=== PATIENT | male | born 1950 | race Caucasian/White ===

== ENCOUNTER 2018-10-22 15:28 | Inpatient (IN) ==
[2018-10-22] MEDS ORDERED: Adenosine Inj 6 MG/2 ML Syringe IV.PUSH ONE (15:38)
[2018-10-22] MEDS ORDERED: Sodium Chlor 0.9% Inj 500 ML IV.SIG ONE (15:40)
[2018-10-22 15:56] LABS: Baso % (Auto) 0.2 % (0.0-2.0); Eos # (Auto) 0.1 th/mm3 (0.0-0.4); Eos % (Auto) 1.1 % (0.0-4.0); Hematocrit 49.2 % (39.0-51.0); Hemoglobin 16.4 gm/dL (13.0-17.0); Lymph # (Auto) 2.1 th/mm3 (1.0-4.8); Lymph % (Auto) 16.5 % (9.0-44.0); Mean Corpuscular HGB Conc 33.3 % (32.0-36.0); Mean Corpuscular Hemoglobin 29.7 pg (27.0-34.0); Mean Corpuscular Volume 89.2 fL (80.0-100.0); Mean Platelet Volume 8.3 fL (7.0-11.0); Mono # (Auto) 1.1 th/mm3 (0.0-0.9); Mono % (Auto) 8.5 % (0.0-8.0); Neut # (Auto) 9.3 th/mm3 (1.8-7.7); Neut % (Auto) 73.7 % (16.0-70.0); Platelet Count 250 th/mm3 (150-450); Red Blood Count 5.51 mil/mm3 (4.50-5.90); Red Cell Distribution Width 13.3 % (11.6-17.2); White Blood Count 12.6 th/mm3 (4.0-11.0)
--- NOTE | 2018-10-22 15:56 | XR ---
EXAM DATE: 10/22/2018 3:53 PM EST AGE/SEX: 68 years / Male INDICATIONS: Chest pain. CLINICAL DATA: This is the patient's initial encounter. Patient reports that signs and symptoms have been present for 1 day and indicates a pain score of 7/10. MEDICAL/SURGICAL HISTORY: Carcinoma, prostatic. Chronic obstructive pulmonary disease. Myocard ial infarction. CABG. COMPARISON: No prior exams available for comparison. FINDINGS: The lungs are clear without infiltrate, nodule, or mass. There is no appreciable pleural effusion for technique. Heart and mediastinum are unremarkable. There is evidence for prior median sternotomy. CONCLUSION: No acute cardiopulmonary disease. Electronically signed by: Lizet Fernandez MD Board Certified Radiologist 10/22/2018 3:55 PM EST
[2018-10-22 16:04] LABS: Chloride 104 meq/L (98-107); Potassium 3.6 meq/L (3.5-5.1); Sodium 138 meq/L (136-145)
[2018-10-22 16:08] LABS: Activated Partial Thrombo Time 31.6 sec (23.4-31.7); Albumin 3.7 g/dL (3.4-5.0); Anion Gap 8 meq/L (5-15); Blood Urea Nitrogen 19 mg/dL (7-18); Calcium 8.6 mg/dL (8.5-10.1); Carbon Dioxide 26.1 meq/L (21.0-32.0); Glucose,Random 160 mg/dL (74-106); Prothrombin Time 10.4 sec (9.8-11.6)
--- NOTE | 2018-10-22 16:08 | ED ---
HPI General Chief Complaint: Chest Pain Stated Complaint: chest pain/poss heart attack Time Seen by Provider: 10/22/18 15:30 Source: patient Mode of arrival: ambulatory Limitations: no limitations History of Present Illness HPI narrative: Patient is a 68-year-old male, past medical history significant for peripheral vascular disease status post stent placement in the iliac, coronary artery disease status post four-vessel CABG done approximately 2-3 years ago, COPD, who presents with complaint of chest pain that began yesterday. He states that yesterday he started to have substernal burning with some palpitations. He attributed it to indigestion. This morning it worsened it was associated with some dyspnea. He does have COPD and uses an inhaler without relief. He then took a nitroglycerin which also did not provide relief and he came here. He denies leg swelling. Me denies abdominal pain, nausea, vomiting, diarrhea. He does have slight lightheadedness. complaint: Reports chest pain STEMI Alert: No Onset (ago): day(s) Duration: constant Onset: during rest Pain location: Reports substernal Severity: severe Quality: Reports aching and heaviness Pain radiation: Reports none Relieving factors: nothing Exacerbating factors: nothing Associated symptoms: Reports dyspnea Treatments prior to arrival chest pain: Reports nitroglycerin Related Data Allergies Allergy/AdvReac Type Severity Reaction Status Date / Time No Known Allergies Allergy Verified 10/22/18 15:42 Review of Systems ROS: all other systems reviewed are negative [facility] Medical History Medical History Coronary artery graft present (Acute) New onset atrial fibrillation (Acute) Prostate cancer (Acute) Surgical History Surgical History History of coronary artery stent placement (Acute) Hx of cholecystectomy (Acute) Social History Social History Substance History: No History of Abuse Second Hand Smoke Exposure: No Smoking Status: Former smoker Tobacco Type: Cigarettes How Often Do You Have a Drink Containing Alcohol: 2 to 3 times a week Recent Travel in [facility] within the Last 8 Weeks: No Recent Out of Country Travel within the Last 8 Weeks: No Immunization History Tetanus Immunization: >5 Years Exam Narrative Exam Narrative: GENERAL: Well-appearing male in distress SKIN: Focused skin assessment warm. Some diaphoresis HEAD: Atraumatic. Normocephalic. EYES: Pupils equal and round. No scleral icterus. No injection or drainage. ENT: No nasal bleeding or discharge. Mucous membranes pink and moist. NECK: Trachea midline. No JVD. CARDIOVASCULAR: Tachycardic and irregular. No murmur appreciated. Intact and equal peripheral pulses. RESPIRATORY: No accessory muscle use. Clear to auscultation. Breath sounds equal bilaterally. GASTROINTESTINAL: Abdomen soft, non-tender, nondistended. Hepatic and splenic margins not palpable. MUSCULOSKELETAL: No obvious deformities. No clubbing. No cyanosis. No edema. NEUROLOGICAL: Awake and alert. No obvious cranial nerve deficits. Motor grossly within normal limits. Normal speech. PSYCHIATRIC: Appropriate mood and affect; insight and judgment normal. Course Initial Documented Vital Signs Temperature 98.2 F 10/22/18 15:30 Pulse Rate 167 H 10/22/18 15:30 Respiratory Rate 16 10/22/18 15:30 Blood Pressure 101/65 10/22/18 15:30 Pulse Oximetry 98 10/22/18 15:30 Last Documented Vital Signs Temperature 98.2 F 10/22/18 15:30 Pulse Rate 101 H 10/22/18 17:08 Respiratory Rate 16 10/22/18 17:08 Blood Pressure 102/71 10/22/18 17:08 Pulse Oximetry 97 10/22/18 17:08 Medical Decision Making MDM Narrative Medical decision making narrative: Patient is a 68-year-old male history of peripheral vascular disease and coronary artery disease who presents with complaint of chest pain that began yesterday and worsened approximately 2 hours prior to arrival. On arrival his heart rate continuously bounced around from 115-160-180 and then back down to 130 and back up to 180 continuously. It did not stay at the same rate for more than 5-10 seconds. Blood pressure was in the 100s. EKG did show some irregularity which may be secondary to SVT. He was given 15 mg of diltiazem as this will treat both SVT and atrial fibrillation with immediate response and heart rate decreased from 180 down to the 110s. Patient then began to feel better as well. Repeat EKG afterwards shows what appears to be some sinus tachycardia (? P waves), with several complexes without P waves. Chest x-ray does not show acute consolidation. Labs were relatively unremarkable. Patient then informed me that he also has prostate cancer that he is actively being treated for. CTA was ordered and did not show pulmonary embolism. I spoke with Dr. Kidd, manager branch on-call, who was in the building and came to see the patient. He placed several orders for the patient for essentially an ACS rule out in addition to oral, IV and IV drip of diltiazem. I then spoke with Dr. Reinoso, hospitalist eye surgeon, for admission. Medical Screen Exam Complete: Yes Emergency Medical Condition: Yes Differential Diagnosis Differential Diagnosis: Differential diagnosis includes but is not limited to acute coronary syndrome, SVT, atrial fibrillation. Medical Records Medical records reviewed: Yes I reviewed the patient's medical records. Lab Data Lab results reviewed: Yes I reviewed the patient's lab results. Result diagrams: 10/22/18 15:40 10/22/18 15:40 Lab Results 10/22/18 10/22/18 10/22/18 Range/Units 15:34 15:40 15:40 CBC w Diff Auto diff final WBC 12.6 H (4.0-11.0) th/mm3 RBC 5.51 (4.50-5.90) mil/mm3 Hgb 16.4 (13.0-17.0) gm/dL Hct 49.2 (39.0-51.0) % MCV 89.2 (80.0-100.0) fL MCH 29.7 (27.0-34.0) pg MCHC 33.3 (32.0-36.0) % RDW 13.3 (11.6-17.2) % Plt Count 250 (150-450) th/mm3 MPV 8.3 (7.0-11.0) fL Neut % (Auto) 73.7 H (16.0-70.0) % Lymph % (Auto) 16.5 (9.0-44.0) % Stoddard % (Auto) 8.5 H (0.0-8.0) % Eos % (Auto) 1.1 (0.0-4.0) % Baso % (Auto) 0.2 (0.0-2.0) % Neut # (Auto) 9.3 H (1.8-7.7) th/mm3 Lymph # (Auto) 2.1 (1.0-4.8) th/mm3 Stoddard # (Auto) 1.1 H (0.0-0.9) th/mm3 Eos # (Auto) 0.1 (0.0-0.4) th/mm3 Baso # (Auto) 0.0 (0.0-0.2) th/mm3 WBC Differential . Differential Comment . PT 10.4 (9.8-11.6) sec INR 1.0 Ratio APTT 31.6 (23.4-31.7) sec Sodium (136-145) meq/L Potassium (3.5-5.1) meq/L Chloride (98-107) meq/L Carbon Dioxide (21.0-32.0) meq/L Anion Gap (5-15) meq/L BUN (7-18) mg/dL Creatinine (0.60-1.30) mg/dL Estimated GFR (>89) mL/min POC Glucose 152 H (68-110) mg/dl Random Glucose (74-106) mg/dL Calcium (8.5-10.1) mg/dL Total Bilirubin (0.2-1.0) mg/dL AST (15-37) U/L ALT (12-78) U/L Alkaline Phosphatase (45-117) U/L Troponin I (0.02-0.05) ng/mL B-Natriuretic Peptide (0-100) pg/mL Total Protein (6.4-8.2) g/dL Albumin (3.4-5.0) g/dL 10/22/18 10/22/18 Range/Units 15:40 15:40 CBC w Diff WBC (4.0-11.0) th/mm3 RBC (4.50-5.90) mil/mm3 Hgb (13.0-17.0) gm/dL Hct (39.0-51.0) % MCV (80.0-100.0) fL MCH (27.0-34.0) pg MCHC (32.0-36.0) % RDW (11.6-17.2) % Plt Count (150-450) th/mm3 MPV (7.0-11.0) fL Neut % (Auto) (16.0-70.0) % Lymph % (Auto) (9.0-44.0) % Stoddard % (Auto) (0.0-8.0) % Eos % (Auto) (0.0-4.0) % Baso % (Auto) (0.0-2.0) % Neut # (Auto) (1.8-7.7) th/mm3 Lymph # (Auto) (1.0-4.8) th/mm3 Stoddard # (Auto) (0.0-0.9) th/mm3 Eos # (Auto) (0.0-0.4) th/mm3 Baso # (Auto) (0.0-0.2) th/mm3 WBC Differential Differential Comment PT (9.8-11.6) sec INR Ratio APTT (23.4-31.7) sec Sodium 138 (136-145) meq/L Potassium 3.6 (3.5-5.1) meq/L Chloride 104 (98-107) meq/L Carbon Dioxide 26.1 (21.0-32.0) meq/L Anion Gap 8 (5-15) meq/L BUN 19 H (7-18) mg/dL Creatinine 1.20 (0.60-1.30) mg/dL Estimated GFR 60 L (>89) mL/min POC Glucose (68-110) mg/dl Random Glucose 160 H (74-106) mg/dL Calcium 8.6 (8.5-10.1) mg/dL Total Bilirubin 1.7 H (0.2-1.0) mg/dL AST 14 L (15-37) U/L ALT 20 (12-78) U/L Alkaline Phosphatase 93 (45-117) U/L Troponin I Less than 0.02 L (0.02-0.05) ng/mL B-Natriuretic Peptide 85 (0-100) pg/mL Total Protein 7.6 (6.4-8.2) g/dL Albumin 3.7 (3.4-5.0) g/dL Imaging Data Attestation: I personally reviewed and interpreted this imaging study as follows : My impression: No acute cardiopulmonary process. Radiologist's impression: Chest X-Ray 10/22/18 15:40 CONCLUSION: No acute cardiopulmonary disease. Chest CTA 10/22/18 16:27 CONCLUSION: Stable right lung base nodule and chronic scar. ECG Data EKG Prior to Arrival: No Attestation: I personally reviewed and interpreted this ECG as follows: ( Tachycardia at a rate of 180 bpm. No visible P waves were seen. SVT versus atrial fibrillation.) Discharge Plan Discharge Disposition Patient Disposition: ED Admit(ED Internal Use Only) Discharge Condition Condition: Stable Discharge Order Discharge Orders: ED Use Only Admit Order (Routine); Ordered 10/22/18 Ordered By: Radha White Discharge Details Diagnosis: New onset atrial fibrillation, Chest pain, rule out acute myocardial infarction , History of four vessel coronary artery bypass graft Physicians Team ED Provider: Radha White Primary Care Provider: Jessie Wharton Attending Provider: Martha Reinoso Other Providers: Louis Cervantes Discharge Interventions Interventions: Vital Signs Last Done: 10/22/18 17:08 Status ED Status: Admitted Patient
[2018-10-22 16:11] LABS: Alanine Aminotransferase 20 U/L (12-78); Aspartate Aminotransferase 14 U/L (15-37); Glomerular Filtration Rate 60 mL/min (>89)
[2018-10-22 16:13] LABS: Total Protein 7.6 g/dL (6.4-8.2)
[2018-10-22 16:14] LABS: Alkaline Phosphatase 93 U/L (45-117)
[2018-10-22] MEDS ORDERED: Regadenoson Inj 0.4 MG/5 ML Syringe IV.PUSH ONE (16:40)
[2018-10-22] MEDS ORDERED: dilTIAZem Inj 125 MG in Sodium Chlor 0.9% Inj 100 ML IV.CONT PRN (17:00)
[2018-10-22] MEDS ORDERED: Sod Chloride 0.9% Inj 1,000 ML IV.CONT SCH (17:00)
--- NOTE | 2018-10-22 17:06 | CT ---
EXAM DATE: 10/22/2018 4:54 PM EST AGE/SEX: 68 years / Male INDICATIONS: Short of breath and Chest discomfort CLINICAL DATA: This is the patient's initial encounter. Patient reports that signs and symptoms have been present for 1 day and indicates a pain score of 0/10. MEDICAL/SURGICAL HISTORY: Carcinoma, prostatic. Atrial Fibrillation Cholecystectomy. Coronary Maryellen ry Graft RADIATION DOSE: 13.01 CTDI (mGy) COMPARISON: POI, CT CHEST W/O CONTRAST, 06/27/2018. [place] [facility] [place] . TECHNIQUE: Volumetric scanning was performed using a multi-row detector CT scanner during bolus infu [place] of 73ML ml Omnipaque 350 (iohexol) nonionic water-soluble contrast as a single exam dose. The d joya was post processed with a variety of visualization algorithms including full volume maximum inten sity projection and sliding thin slab reformation. Using automated exposure control and adjustment o f the mA and/or kV according to patient size, radiation dose was kept as low as reasonably achievable to obtain optimal diagnostic quality images. DICOM format image data is available electronically fo r review and comparison. FINDINGS: Slight right lung base scar is present with tiny nodular density is stable not significantly changes since 2014. COPD changes are seen. Coronary artery calcifications are seen typically seen with kinney ry artery disease and clinical correlation and evaluation is suggested. There is no evidence of PE fo r technique. . There is no pleural effusion. No appreciable pathological adenopathy is seen withi n the mediastinum. CONCLUSION: Stable right lung base nodule and chronic scar. Electronically signed by: Lizet Fernandez MD Board Certified Radiologist 10/22/2018 5:04 PM EST
[2018-10-22] MEDS ORDERED: Acetaminophen 325 MG Tablet PO ONE (17:18)
--- NOTE | 2018-10-22 17:19 | MB ---
cc: Louis Cervantes MD DATE: 10/22/2018 REASON FOR CONSULTATION: Chest pain with new onset atrial fibrillation. 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 The patient had been doing well until the last several days when he began having what he describes as heartburn in the central chest and generally not feeling well. He wears an [employer] watch which told him he was tachycardic, so he presented to the emergency department where he was found to be in a rapid atrial fibrillation/flutter. He has been given Cardizem with some slowing of his heart rate. He is feeling better at the moment with no current chest pain. No shortness of breath, lightheadedness, dizziness. PAST MEDICAL HISTORY: 1. Coronary artery disease, status post 4-vessel CABG 2-3 years ago. 2. COPD. 3. PAD. CURRENT MEDICATIONS: (Most of these just started) 1. Oral Cardizem 30 mg p.o. daily. 2. Cardizem drip. 3. Eliquis 5 mg b.i.d. ALLERGIES: NO KNOWN DRUG ALLERGIES. PHYSICAL EXAMINATION: VITAL SIGNS: Afebrile, heart rate 96, blood pressure 107/67, saturating 90 on room air. GENERAL: A very pleasant gentleman in no distress. NECK: No JVD. LUNGS: Clear to auscultation bilaterally. CARDIOVASCULAR: Irregularly irregular rhythm with a mildly rapid rate. No significant murmurs appreciated. ABDOMEN: Benign. EXTREMITIES: No edema. LABORATORY DATA: White count 12.6, hemoglobin 16.4, hematocrit 49.2. INR is 1.0. Sodium 138, potassium 3.6, chloride 104, bicarbonate 26.1, BUN 18, creatinine 1.2, glucose 152. Troponin is negative x1. EKG shows atrial fibrillation at a rate of [address] changes. IMPRESSION: 1. Atrial fibrillation. The patient has new onset atrial fibrillation. I have started him on a Cardizem drip with saline boluses to improve his blood pressure given he has no history of congestive heart failure and his labs do look like he is somewhat dry. I have also started oral Cardizem and his drip can be weaned down as tolerated. For anticoagulation, I have initiated Eliquis 5 mg b.i.d. He will undergo an echocardiogram to ensure his left ventricular function and valvular status is acceptable. 2. Chest pain. The patient has vague chest pain, which may be unrelated, but given his known coronary disease, I will have him undergo a nuclear stress test tomorrow presuming no major change to his cardiac enzymes. Further recommendations based on the above. Thank you again for the opportunity to participate in this patient's care. MD NIMESH TorreH/shila , 04:47 PM , 04:52 PM
[2018-10-22] MEDS: dilTIAZem 30 MG Tablet PO SCH ×2 (18:05→22:12)
[2018-10-23] MEDS: dilTIAZem 30 MG Tablet PO SCH ×2 (10:01→15:20)
[2018-10-23 10:35] VITALS: RESP 20
--- NOTE | 2018-10-23 10:35 | ECHRPT ---
Indication: ATRIAL FIB/FLUTTER CONCLUSIONS Normal left ventricular size. Wall thickness is normal. The left ventricular systolic function is mildly reduced with an estimated ejection fraction in the range of 45- 50%. There is abnormal (paradoxical) septal motion consistent with postoperative state. There is trace tricuspid valve regurgitation. The estimated pulmonary arterial pressure is 33.6 mmHg. A prominent epicardial fat pad is present. BP: / HR: Rhythm: Sinus MEASUREMENTS (Male / Female) Normal Values Technical Quality:Technically difficult study 2D ECHO LV Diastolic Diameter PLAX 4.6 cm 4.2 - 5.9 / 3.9 - 5.3 cm LV Systolic Diameter PLAX 3.9 cm IVS Diastolic Thickness 0.8 cm 0.6 - 1.0 / 0.6 - 0.9 cm LVPW Diastolic Thickness 0.8 cm 0.6 - 1.0 / 0.6 - 0.9 cm LV Relative Wall Thickness 0.3 RV Internal Dim ED PLAX 2.8 cm LVOT Diameter 1.9 cm Aortic Root Diameter 3.5 cm LA Systolic Diameter LX 2.7 cm 3.0 - 4.0 / 2.7 - 3.8 cm M-MODE AV Cusp Separation MM 1.9 cm DOPPLER AV Peak Velocity 113.0 cm/s AV Peak Gradient 5.1 mmHg AV Mean Gradient 3.0 mmHg AV Velocity Time Integral 22.9 cm LVOT Peak Velocity 79.7 cm/s LVOT Peak Gradient 2.5 mmHg LVOT Velocity Time Integral 14.7 cm AV Area Cont Eq vti 1.8 cm AV Area Cont Eq pk 2.0 cm Mitral E Point Velocity 94.3 cm/s Mitral A Point Velocity 69.6 cm/s Mitral E to A Ratio 1.4 LV E' Lateral Velocity 9.9 cm/s Mitral E to LV E' Lateral Ratio 9.5 LV E' Septal Velocity 8.2 cm/s Mitral E to LV E' Septal Ratio 11.5 TR Peak Velocity 243.0 cm/s TR Peak Gradient 23.6 mmHg Right Atrial Pressure 10.0 mmHg Pulmonary Artery Systolic Pressu 33.6 mmHg Right Ventricular Systolic Press 33.6 mmHg PV Peak Velocity 48.1 cm/s PV Peak Gradient 0.9 mmHg FINDINGS LEFT VENTRICLE Normal left ventricular size. Wall thickness is normal. The left ventricular systolic function is mildly reduced with an estimated ejection fraction in the range of 45- 50%. There is abnormal (paradoxical) septal motion consistent with postoperative state. RIGHT VENTRICLE Normal right ventricular size and systolic function. LEFT ATRIUM The left atrial size is normal. RIGHT ATRIUM The right atrial size is normal. ATRIAL SEPTUM No atrial level shunt is demonstrated by color flow Doppler interrogation. AORTA The aortic root and proximal ascending aorta are not well visualized. MITRAL VALVE Structurally normal mitral valve. No mitral valve stenosis or regurgitation. AORTIC VALVE Trileaflet aortic valve. No aortic valve stenosis or regurgitation. TRICUSPID VALVE There is trace tricuspid valve regurgitation. The estimated pulmonary arterial pressure is 33.6 mmHg. PULMONARY VALVE No pulmonary valve regurgitation or stenosis. VESSELS The inferior vena cava was not well visualized. PERICARDIUM No pericardial effusion. A prominent epicardial fat pad is present. Louis Cervantes MD (Electronically Signed) Final Date:23 October 2018 10:33
[2018-10-23] MEDS ORDERED: Regadenoson Inj 0.4 MG/5 ML Syringe IV.PUSH ONE (10:47)
--- NOTE | 2018-10-23 11:43 | P.HPIM ---
History of Present Illness Primary Care Physician: Jessie Wharton MD Chief Complaint: Chest pain and arrhythmia History of Present Illness: 68-year-old male with known history of hypertension, hyper lipidemia, tobacco use, coronary disease status post bypass surgery, recent diagnosed prostate cancer undergoing radiation treatment who presented to hospital because of chest pain and arrhythmia/palpitations. Patient states that he was in normal state of health until yesterday started developing pain in the left side of his chest pain 2 nights ago and he thought it was related to indigestion. Yesterday morning when he still continued to have the discomfort he did take nitroglycerin with some minimal improvement. He states that the pain was worse whenever he took a deep breath which got up to 8/10 on a pain scale. He does have an apple watch in which he checked and noticed that his heart rate was 180 and because of that he came to the emergency department for evaluation. He denied any lightheadedness, dizziness, nausea, vomiting, diaphoresis. Patient had workup done in emergency department found to have atrial fibrillation and was started on Cardizem with conversion to sinus rhythm. Lime Trimmer was in the hospital and evaluated patient emergency department and made recommendations for treatment. Currently patient is lying in bed and resting comfortably. Awaiting stress test to be performed. Patient is currently asymptomatic. Diagnosis (1) New onset atrial fibrillation: (2) Chest pain, rule out acute myocardial infarction: Inpatient Certification Inpatient Certification: I certify that the inpatient services were ordered in accordance with Medicare regulations governing the order. This includes certification that hospital inpatient services are reasonable and necessary and in the case of services not specified as inpatient-only under 42 CFR 419.22(n), that they are appropriately provided as inpatient services in accordance to with the 2-midnight benchmark under 43 CFR 412.3(e) Estimated Total Length of Stay (Days): 2 Plans for Post Hospital Care: Home Review of Systems Review of Systems: all other systems reviewed are negative Cardiovascular: Reports chest pain and Reports rapid heart rate [facility] Medical History Medical History Coronary artery disease (Acute) Hyperlipidemia (Acute) Hypertension (Acute) New onset atrial fibrillation (Acute) Prostate cancer (Acute) Surgical History Surgical History Coronary artery graft present (Acute) History of coronary artery stent placement (Acute) Hx of cholecystectomy (Acute) Status post insertion of iliac artery stent (Acute) Family History Family History Mother Family history of heart disease Family history of cancer Social History Social History Substance History: No History of Abuse Second Hand Smoke Exposure: No Smoking Status: Former smoker Tobacco Type: Cigarettes How Often Do You Have a Drink Containing Alcohol: 2 to 3 times a week Recent Travel in [facility] within the Last 8 Weeks: No Recent Out of Country Travel within the Last 8 Weeks: No Immunization History Tetanus Immunization: Unsure Hx Influenza Vaccine This Season: Yes Medications and Allergies Allergies Allergy/AdvReac Type Severity Reaction Status Date / Time No Known Allergies Allergy Verified 10/22/18 15:42 Active Medications: Active Medications Apixaban (Eliquis) 5 mg PO BID [facility] Last Admin: 10/23/18 10:01 Dose: 5 mg Diltiazem HCl (Cardizem) 30 mg PO QID [facility] Last Admin: 10/23/18 10:01 Dose: 30 mg Diltiazem HCl 125 mg/ Sodium (Chloride) 125 mls @ 5 mls/hr IV.CONT TITRATE PRN ; Protocol PRN Reason: Per Protocol Last Admin: 10/22/18 18:40 Dose: 5 mg/hr, 5 mls/hr Sodium Chloride (Ns Flush) 2 ml IV.FLUSH UNSCH PRN PRN Reason: FLUSH AFTER USING IV ACCESS Last Admin: 10/22/18 17:33 Dose: 2 ml Physical Exam Vital signs: Last Vital Signs Temp 97.4 F L 10/23/18 08:00 Pulse 75 10/23/18 08:00 Resp 20 10/23/18 08:00 BP 113/60 10/23/18 08:00 Pulse Ox 95 10/23/18 08:00 Intake & Output 10/21/18 10/22/18 10/23/18 10/24/18 06:59 06:59 06:59 06:59 Intake Total 1500 / 1500 Balance 1500 / 1500 Weight 75 kg Narrative: GENERAL: Well-developed, well-nourished, in no acute distress. alert and orientated HEENT: Head is normocephalic without any lesions or masses noted. Facial features are symmetric. Eyes: Pupils equal round reactive to light. Extraocular muscles are intact. Conjunctivae were clear. Oropharyngeal: Pharynx without any erythema edema. Tongue is midline without deviation. Buccal mucosa is moist without any masses or lesions NECK: Supple without any masses. Trachea midline no deviation. No JVD, no bruits are appreciated CARDIAC: Regular rhythm, regular rate. S1/S2 are heard. No murmurs gallops or rubs. LUNGS: Clear to auscultation bilaterally. No wheeze, rhonchi or rales. No use of accessory muscles on inspiration or expiration. ABDOMEN: Soft, nontender. Nondistended. Bowel sounds heard in all 4 quadrants. No organomegaly or masses. Negative rebound, negative guarding EXTREMITIES: No edema, pulses are equal bilaterally. No cyanosis or clubbing NEUROLOGY: Mood and affect appear appropriate. Cranial nerves II through XII grossly intact. Muscle strength 5/5 in upper and lower extremities bilaterally. Deep tendon reflexes are 2+ in upper and lower extremities bilaterally. Results Labs CBC & Chem 7: 10/22/18 15:40 10/22/18 15:40 Imaging Impressions Chest X-Ray 10/22/18 15:40 CONCLUSION: No acute cardiopulmonary disease. Chest CTA 10/22/18 16:27 CONCLUSION: Stable right lung base nodule and chronic scar. Caprini VTE Risk Assessment Caprini VTE Risk Assessment: Moderate/High Risk (score >= 2) Caprini Risk Assessment Model: Point Value = 1 Point Value = 2 Point Value = 3 Point Value = 5 Age 41-60 Minor surgery BMI > 25 kg/m2 Swollen legs Varicose veins or History of unexplained or recurrent spontaneous Oral contraceptives or hormone replacement Sepsis (< 1 month) Serious lung disease, including pneumonia (< 1 month) Abnormal pulmonary function Acute myocardial infarction Congestive heart failure (< 1 month) History of inflammatory bowel disease Medical patient at bed rest Age 61-74 Arthroscopic surgery Major open surgery (> 45 min) Laparoscopic surgery (> 45 min) Malignancy Confined to bed (> 72 hours) Immobilizing plaster cast Central venous access Age >= 75 History of VTE Family history of VTE Factor V Leiden Prothrombin [id number] Lupus anticoagulant Anticardiolipin antibodies Elevated serum homocysteine Heparin-induced thrombocytopenia Other congenital or acquired thrombophilia Stroke (< 1 month) Elective arthroplasty Hip, pelvis, or leg fracture Acute spinal cord injury (< 1 month) Prophylaxis Regimen: Total Risk Factor Score Risk Level Prophylaxis Regimen 0-1 Low Early ambulation 2 Moderate Order ONE of the following: *Sequential Compression Device (SCD) *Heparin 5000 units SQ BID 3-4 Higher Order ONE of the following medications: *Heparin 5000 units SQ TID *Enoxaparin/Lovenox 40 mg SQ daily (WT < 150 kg, CrCl > 30 mL/min) *Enoxaparin/Lovenox 30 mg SQ daily (WT < 150 kg, CrCl > 10-29 mL/min) *Enoxaparin/Lovenox 30 mg SQ BID (WT < 150 kg, CrCl > 30 mL/min) AND/OR *Sequential Compression Device (SCD) 5 or more Highest Order ONE of the following medications: *Heparin 5000 units SQ TID (Preferred with Epidurals) *Enoxaparin/Lovenox 40 mg SQ daily (WT < 150 kg, CrCl > 30 mL/min) *Enoxaparin/Lovenox 30 mg SQ daily (WT < 150 kg, CrCl > 10-29 mL/min) *Enoxaparin/Lovenox 30 mg SQ BID (WT < 150 kg, CrCl > 30 mL/min) AND *Sequential Compression Device (SCD) Assessment and Plan (1) New onset atrial fibrillation: Code(s): I48.91 - Unspecified atrial fibrillation Status: Acute (2) Chest pain, rule out acute myocardial infarction: Code(s): R07.9 - Chest pain, unspecified Status: Acute Plan Paroxysmal atrial fibrillation, new onset Patient was started on Cardizem with conversion to normal sinus rhythm Patient continued on Cardizem 30 mg 4 times daily Patient started on Cardizem CD 180 mg daily by overhead distribution engineer Patient started on anticoagulation with Eliquis Cardiology following the patient and making recommendations Echocardiogram was performed which does show mildly reduced systolic function with ejection fraction 45-50%. Abnormal septal motion consistent with postoperative state. Cardiology cleared the patient to go home in stable condition with outpatient follow-up Chest pain Serial cardiac enzymes were performed which were normal and did not indicate any acute coronary event Myocardial perfusion study was performed in did not indicate any ischemia, normal examination with low risk DVT prevention Patient is on Eliquis Discharge Planning: Discharge planning home once cleared by cardiology H&P: Quality VTE Deep Vein Thrombosis/Pulmonary Embolism Present on Admission: No
--- NOTE | 2018-10-23 12:33 | NM ---
EXAM DATE: 10/23/2018 12:04 PM EST AGE/SEX: 68 years / Male INDICATIONS:Angina. Atrial fibrillation Chest pain. CLINICAL DATA: This is the patient's initial encounter. Patient reports that signs and symptoms have been present for 1 day and indicates a pain score of 1/10. MEDICAL/SURGICAL HISTORY: Carcinoma, prostatic. Coronary artery stent. COMPARISON: No prior exams available for comparison. DOSE: 8.8 mCi Tc 99m Myoview at rest 26.7 mCi [id number] at stress 0.4 mg Lexiscan STRESS SYMPTOMS: Dyspnea and lightheadedness. EJECTION FRACTION: 69 % TECHNIQUE: The patient underwent pharmacologic stress with infusion of prescribed dose. Continuous ECG tracing was monitored during stress. Gated SPECT imaging was performed after stress and conventi onal SPECT imaging was performed at rest. The examination was performed on a SPECT/CT scanner, both attenuation and non-corrected datasets were reviewed. FINDINGS: Distribution: The maximum perfused segment at stress is in the anterior wall wall. Perfusion Study: The pattern of perfusion at stress is within normal limits. Gated Study: There are intact wall motion and wall thickening without hypokinetic or dyskinetic segm ents. The ejection fraction is calculated at 69%. RISK CATEGORY: Low (<1% Annual Mortality Rate) CONCLUSION: 1. Negative examination. Electronically signed by: Lizet Fernandez MD Board Certified Radiologist 10/23/2018 12:32 PM EST
--- NOTE | 2018-10-23 15:29 | ECG ---
Date Performed: 10/22/2018 Time Performed: 15:32:56 PTAGE: 68 years EKG: ATRIAL FIBRILLATION WITH RAPID VENTRICULAR RESPONSE MODERATE ST DEPRESSION ABNORMAL ECG Com pared to PREVIOUS TRACING , there is a rhythm change from Sinus rhythm to atrial fibrillation with a very rapid ventricular response. Clinical correlation and follow-up tr acings are recommended. PREVIOUS TRACIN07/02/2015 12.21 DOCTOR: Teja Green Interpretating Date/Time 10/23/2018 15:28:12
--- NOTE | 2018-10-23 16:12 | P.PNCA ---
Subjective Interval history: Pt doing well, in NSR Medications and Allergies Active Medications: Active Medications Apixaban (Eliquis) 5 mg PO BID [facility] Last Admin: 10/23/18 10:01 Dose: 5 mg Diltiazem HCl (Cardizem) 30 mg PO QID [facility] Last Admin: 10/23/18 15:20 Dose: 30 mg Diltiazem HCl 125 mg/ Sodium (Chloride) 125 mls @ 5 mls/hr IV.CONT TITRATE PRN ; Protocol PRN Reason: Per Protocol Last Admin: 10/22/18 18:40 Dose: 5 mg/hr, 5 mls/hr Sodium Chloride (Ns Flush) 2 ml IV.FLUSH UNSCH PRN PRN Reason: FLUSH AFTER USING IV ACCESS Last Admin: 10/22/18 17:33 Dose: 2 ml Allergies Allergy/AdvReac Type Severity Reaction Status Date / Time No Known Allergies Allergy Verified 10/22/18 15:42 Physical Exam Vital signs: Vital Signs 10/22/18 16:15 10/22/18 16:40 10/22/18 17:08 Temperature Pulse Rate 96 H 96 H 101 H Respiratory Rate 16 16 16 Blood Pressure 107/67 97/70 L 102/71 Pulse Oximetry 98 97 97 10/22/18 17:30 10/22/18 18:11 10/22/18 19:52 Temperature Pulse Rate 96 H 90 78 Respiratory Rate 16 16 16 Blood Pressure 118/77 102/68 102/67 Pulse Oximetry 98 98 94 L 10/22/18 21:00 10/23/18 00:00 10/23/18 08:00 Temperature 98.7 F 97.0 F L 97.4 F L Pulse Rate 68 70 75 Respiratory Rate 16 19 20 Blood Pressure 104/63 97/58 L 113/60 Pulse Oximetry 97 93 L 95 10/23/18 12:00 10/23/18 14:25 Temperature 97.2 F L Pulse Rate 81 Respiratory Rate 20 Blood Pressure 140/69 Pulse Oximetry 96 95 Intake & Output 10/22/18 10/23/18 10/23/18 18:59 06:59 18:59 Intake Total 500 / 500 1000 / 1000 Balance 500 / 500 1000 / 1000 Weight 75 kg Intake: IV 500 / 500 1000 / 1000 NS Inj 1,000 ML @ 250 mls/hr IV 1000 / 1000 .CONT .Q4H [facility] Rx#:[id number] NS Inj 500 ML @ Wide Open IV. 500 / 500 SIG ONCE ONE Rx#:[id number] - Constitutional no acute distress - Routine HEENT Exam Head: Present: normocephalic Eye: Present: scleral injection - Routine Neck Exam Present: supple. Absent: JVD - Routine Respiratory Exam Present: CTA bilaterally - Routine Cardiovascular Exam Present: RRR - Routine Abdominal Exam Present: soft - Routine Extremities Exam Absent: edema Results 10/22/18 15:40 10/22/18 15:40 Cardiac Enzymes 10/22/18 10/22/18 10/22/18 Range/Units 15:40 15:40 18:20 AST 14 L (15-37) U/L Troponin I Less than 0.02 L Less than 0.02 L (0.02-0.05) ng/mL B-Natriuretic Peptide 85 (0-100) pg/mL 10/22/18 Range/Units 21:43 AST (15-37) U/L Troponin I Less than 0.02 L (0.02-0.05) ng/mL B-Natriuretic Peptide (0-100) pg/mL Coagulation 10/22/18 10/22/18 Range/Units 15:40 15:40 PT 10.4 (9.8-11.6) sec APTT 31.6 (23.4-31.7) sec B-Natriuretic Peptide 85 (0-100) pg/mL CBC 10/22/18 Range/Units 15:40 WBC 12.6 H (4.0-11.0) th/mm3 RBC 5.51 (4.50-5.90) mil/mm3 Hgb 16.4 (13.0-17.0) gm/dL Hct 49.2 (39.0-51.0) % Plt Count 250 (150-450) th/mm3 Neut # (Auto) 9.3 H (1.8-7.7) th/mm3 Lymph # (Auto) 2.1 (1.0-4.8) th/mm3 Howell # (Auto) 1.1 H (0.0-0.9) th/mm3 Eos # (Auto) 0.1 (0.0-0.4) th/mm3 Baso # (Auto) 0.0 (0.0-0.2) th/mm3 Comprehensive Metabolic Panel 10/22/18 Range/Units 15:40 Sodium 138 (136-145) meq/L Potassium 3.6 (3.5-5.1) meq/L Chloride 104 (98-107) meq/L Carbon Dioxide 26.1 (21.0-32.0) meq/L BUN 19 H (7-18) mg/dL Creatinine 1.20 (0.60-1.30) mg/dL Calcium 8.6 (8.5-10.1) mg/dL AST 14 L (15-37) U/L ALT 20 (12-78) U/L Alkaline Phosphatase 93 (45-117) U/L Total Protein 7.6 (6.4-8.2) g/dL Albumin 3.7 (3.4-5.0) g/dL Intake and Output 10/23/18 10/23/18 10/23/18 06:59 14:59 22:59 Intake Total 1000 / 1000 Balance 1000 / 1000 Intake: IV 1000 / 1000 NS Inj 1,000 ML @ 250 mls/hr IV 1000 / 1000 .CONT .Q4H [facility] Rx#:[id number] - Imaging and Cardiology Imaging: Impressions Chest X-Ray 10/22/18 15:40 CONCLUSION: No acute cardiopulmonary disease. Chest CTA 10/22/18 16:27 CONCLUSION: Stable right lung base nodule and chronic scar. Myocardial Perfusion Scan Nuc Med 10/23/18 00:00 CONCLUSION: 1. Negative examination. Assessment and Plan - Assessment (1) New onset atrial fibrillation Code(s): I48.91 - Unspecified atrial fibrillation Status: Acute Plan: In sr, on eliquis, will change dilt to long acting (2) Chest pain, rule out acute myocardial infarction Code(s): R07.9 - Chest pain, unspecified Status: Acute Plan: now s/p non-ischemic nuc stress - Plan will see him in my office in 1-2 weeks.
[2018-10-23 17:26] VITALS: BP 124/83; PULSE 76; TEMP 98.8; O2SAT 94
--- NOTE | 2018-10-24 07:59 | ECG ---
Date Performed: 10/22/2018 Time Performed: 15:51:00 PTAGE: 68 years EKG: INITIAL RHYTHM IS Sinus rhythm WITH RATE OF 85, ABOUT SHELTER THROUGH, PATIENT CHANGES TO ATRIAL FIBRILLATION WITH RAPID VENTRICULA R RESPONSE. NONSPECIFIC ST WAVE CHANGE Compared to previous tracing, patient is in and out of sinus r hythm. Clinical correlation recommended. ABNORMAL RHYTHM ECG PREVIOUS TRACING : 10/22/2018 15.32 DOCTOR: Teja Green Interpretating Date/Time 10/24/2018 07:58:38
--- NOTE | 2018-10-24 08:03 | ECG ---
Date Performed: 10/22/2018 Time Performed: 18:31:10 PTAGE: 68 years EKG: ATRIAL FIBRILLATION ABNORMAL RHYTHM ECG Compared to PREVIOUS TRACING , ventricular response to the atrial fibrillation is now more controlled . PREVIOUS TRACIN10/22/2018 16.33 DOCTOR: Teja Green Interpretating Date/Time 10/24/2018 08:02:41
--- NOTE | 2018-10-24 08:03 | ECG ---
Date Performed: 10/22/2018 Time Performed: 16:33:44 PTAGE: 68 years EKG: ATRIAL FIBRILLATION WITH RAPID VENTRICULAR RESPONSE ABNORMAL RHYTHM ECG Compared to PREVIOUS TRACING , this EKG shows atrial fibrillation throughout the tracing with ventric ular response of 120. PREVIOUS TRACIN10/22/2018 15.51 DOCTOR: Teja Green Interpretating Date/Time 10/24/2018 08:01:45
[2018-10-24] MEDS ORDERED: dilTIAZem CD 120 MG Capsule PO SCH (09:00)
== END 2018-10-23 17:35 | disposition home or self-care (01) | DRG 310 ==
LOC: PHED 15:28 → PHEDA 17:45 → PHICU 20:25 → PH3 22:44
PROVIDERS: ADMIT Internal Medicine; ATTEND Internal Medicine
DX: Z95.1 Presence of aortocoronary bypass graft; I10 Essential (primary) hypertension; I48.0 Paroxysmal atrial fibrillation; Z87.891 Personal history of nicotine dependence; Z95.5 Presence of coronary angioplasty implant and graft; Z92.3 Personal history of irradiation; I25.10 Atherosclerotic heart disease of native coronary artery without angina pectoris; Z79.02 Long term (current) use of antithrombotics/antiplatelets; Z85.46 Personal history of malignant neoplasm of prostate; E78.5 Hyperlipidemia, unspecified
CPT/HCPCS: 71010; 71045; 71275; 78452; 80053; 82948; 82962; 83520; 83880; 84484; 85025; 85610; 85730; 90761; 90774; 90776; 93005; 93017; 93306; 96361; 96374; 96376; 99285; A9502; C8952; C9223; J0150; J0153; J2785; J7030; J7040; Q9967